=== PATIENT | female | born 1960 | race Caucasian/White ===

== ENCOUNTER 2019-09-16 17:26 | Inpatient (IN) | payer SELFPAY ==
[~2019-09-16] VITALS: Ht 172.7 cm; Wt 102.5 kg
[2019-09-16] MEDS ORDERED: MS CONTIN15 MG PO (18:38)
[2019-09-16] MEDS ORDERED: VALIUM5 MG PO (18:38)
[2019-09-16] MEDS ORDERED: LANTUS100 UNITS/ SUB-Q (18:39)
[2019-09-16] MEDS ORDERED: HUMALOG100 UNITS/ SUB-Q (18:39)
[2019-09-16] MEDS ORDERED: MORPHINE SULFAT30 M1 PO (21:46)
--- NOTE | 2019-09-16 22:47 | NUR ---
PT ARRIVES TO CCU ROOM 127 FOR PYELONEPHRITIS, ARRIVES WITH FAMILY. SOMEWHAT SLOW TO RESPOND AND DROWSY BUT SLIDES SELF FROM GURNEY TO BED. C/O FEELING COLD, WARM BLANKETS PROVIDED. PT C/O LOWER BACK PAIN. WILL CHECK ON PAIN MEDS. HR 60'S, SPO2 100% ON ROOM AIR AND RR 11. BP 121/50. LR BOLUS FROM ED INFUSING AND WILL START LR IVF. IV ROCEPHIN WAS GIVEN IN ED. PT ALERT AND ORIENTED, ANSWERING QUESTIONS APPROPRIATLEY BUT HAS SOME CONFUSION/LOSS OF MEMORY REGARDING EVENTS OF THE PREVIOUS DAY.
--- NOTE | 2019-09-16 22:53 | EKG ---
[facility] [address] [facility] [place], [place] [address] Signed Normal sinus rhythm Normal ECG No previous ECGs available Confirmed by JAMAR SANTOS MD ([id number]) on 09/16/2019 10:53:44 PM Electronically Signed By: JAMAR SANTOS MD 09/16/19 2253 PATIENT NAME: RENETTA TSANG Electrocardiogram DATE OF : 56 PHYSICIAN: JAMAR SANTOS MD REPORT #: [id number] REPORT IS CONFIDENTIAL AND NOT TO BE RELEASED WITHOUT AUTHORIZATION
--- NOTE | 2019-09-16 23:21 | NUR ---
RT IN WORKING WITH PT TEACHING IS.
--- NOTE | 2019-09-17 00:30 | NUR ---
PT MUCH MORE AWAKE NOW. EATING JELLO AND BROTH, ASKING FOR MORE FOOD. ALSO ASKING ABOUT HER CHRONIC PAIN MEDICATIONS.
--- NOTE | 2019-09-17 01:15 | NUR ---
PT UP TO BSC WITH 2 PERSON ASSIST, STEADY ON FEET AND LIZZY WELL. VOIDED 600ML VERY DARK FOUL SMELLING URINE. BACK TO BED WITH CALL LIGHT IN HAND, WANTING TO STAY UP AND WATCH TV. "I HAVE INSOMNIA". INFORMED OF NEW ORDER FOR ADVANCING DIET AND PLAN FOR DR SANTOS TO RESTART HER CHRONIC MEDICATIONS IN THE AM, PT AGREEABLE.
--- NOTE | 2019-09-17 04:33 | NUR ---
PT APPEARS TO BE SLEEPING AND RESTFUL/ RESP EVEN AND UNLABORED.
--- NOTE | 2019-09-17 06:33 | NUR ---
PT CONTINUES TO SLEEP, HR 60'S, SPO2 94% RR 8.
--- NOTE | 2019-09-17 08:00 | NUR ---
PT IS SLEEPING AT THIS TIME, AT TIMES SHE IS SNORING AND OR HER IS. PT APEARS TO BE COMFORTABLE AT THIS TIME.
--- NOTE | 2019-09-17 09:28 | NUR ---
IN FOR PTS INITIAL CASE MANAGEMENT ASSESSMENT. PTS PRIMARY NURSE IN ROOM. PT LIVES IN [place], WILL RETURN HOME WITH HER FAMILY.
--- NOTE | 2019-09-17 10:08 | NUR ---
PT UP TO THE BEDSIDE COMMODE VOIDED CLOUDY AND FOUL ODOR URINE, PT THEN BACK TO BED. PT SITTING UPRIGHT, AND DAUGHTER AT THE BEDSIDE. BKF ORDERED.
--- NOTE | 2019-09-17 10:53 | NUR ---
DR SANTOS INTO SEE PT AND NEW ORDERS RECEIVE. PT WILL BE TRANSFERED TO THE M/S UNIT TODAY AT SOMEPOINT.
--- NOTE | 2019-09-17 11:06 | NUR ---
REPORT CALLED TO MAHOGANY SANTOS, PT WILL BE TRANSFERED TO MS ROOM 123 AT SOMEPOINT THIS AM. ALL QUESTIONS ANSWERED AT THIS TIME.
--- NOTE | 2019-09-17 11:21 | NUR ---
PT REFUSED HER ADDITIONAL INSULIN DUE TO HER MUSCLES ARE SORE AND SHE CAN'T MOVE.
--- NOTE | 2019-09-17 11:23 | NUR ---
MED REC COMPLETE
--- NOTE | 2019-09-17 12:02 | NUR ---
PT JUST FINISHED BKF AT THIS TIME. FAMILY REMAINS IN THE ROOM AT THIS TIME. PT ALSO REFUSED HER ADDITIONAL INSULIN THAT WAS ORDERED "MY MUSCLES HURT AND I JUST CAN'T DO THIS". TRYED TO EXPLAINED HOW DM WORKS. IT APPEARS THE PT IS SET IN HER WAYS WITH HOW SHE CONTROLS HER DM.
--- NOTE | 2019-09-17 12:25 | NUR ---
PT TO ROOM VIA BED FAMILY ARE PRESENT. PT WANTS TO ORDER NOON MEAL
--- NOTE | 2019-09-17 12:44 | NUR ---
PT TRANSFERD VIA BED TO ROOM 123 AT THIS TIME. ALL PERSOANL BELONGINGS AND FAMILY WENT WITH PT AT THIS TIME.
--- NOTE | 2019-09-17 14:16 | NUR ---
PATIENT RESTING IN BED. AND DAUGHTER IN ROOM. VITAL SIGNS AND I&O DONE. CALL MAIRA ZHOU. NO OTHER NEEDS AT THIS TIME
--- NOTE | 2019-09-17 14:42 | NUR ---
PT EATS A LARGE LUNCH REMAINS IN THE BED, FAMILY PRESENT IN THE ROOM. UP TO TOILET 0 C/O RETURNS TO RESTING IN BED
--- NOTE | 2019-09-17 17:27 | NUR ---
PATIENT SITTING UP IN CHAIR. AND DAUGHTER IN ROOM. VITAL SIGNS AND I&O DONE. CALL LIGHT WITHIN REACH. NO OTHER NEEDS AT THIS TIME
--- NOTE | 2019-09-17 18:28 | NUR ---
PT SITTING UP IN BED EATING EVENING MEAL AND DAUGHTER REMAIN IN THE ROOM. PT AGREES SHE HAS EVERYTHING SHE NEEDS AT THIS TIME
--- NOTE | 2019-09-17 19:09 | NUR ---
RECEIVED REPORT FROM TOM FRANCIS. pt RESTING IN BED WITH AND DAUGHTER AT BEDSIDE. pt REPORTING 8/10 PAIN, REQUESTED PAIN MEDICATION. WILL SPEAK WITH THE MD AND RETURN. CALL LIGHT WITHIN REACH.
--- NOTE | 2019-09-17 19:25 | NUR ---
SPOKE WITH MD, NO NEW ORDERS. pt INFORMED OF MD'S DECISION. WILL BE BACK AT 2030 TO GIVE MEDICATION. pt AGREEABLE TO PLAN. CALL LIGHT WITHIN REACH.
--- NOTE | 2019-09-17 20:30 | NUR ---
ASSESSMENT DONE. MEDICATIONS GIVEN (SEE MAR). pt REQUESTED TO GET UP TO THE TOILET, SHOES ON. ASSISTED. 2PA TO TOILET. pt VOIDED. ABLE TO STAND. DISCUSSED LACK OF BM AT LENGTH. WILL CONSULT WITH MD ON BEST APPROACH. pt REQUIRED 2PA TO RETURN FROM TOILET TO BED. SETTLED IN BED. LINENS CHANGED. CLEANED EKG STICKERS OFF pt. NO FURTHER REQUESTS AT THIS TIME. CALL LIGHT WITHIN REACH. AND DAUGHTER AT BEDSIDE.
--- NOTE | 2019-09-17 21:45 | NUR ---
MD NOTIFED OF pt REQUESTED FOR MAG CITRATE. MD ORDER ENTERED, OKAY FOR pt's TO BRING IN PREFERRED FLAVOR. pt AND FAMILY INFORMED.
--- NOTE | 2019-09-17 23:22 | NUR ---
ROUNDED ON pt. SNORING WITH EYES CLOSED, RESPIRATIONS REGULAR AND UNLABORED. RATE = 18. CALL LIGHT WITHIN REACH.
--- NOTE | 2019-09-18 01:30 | NUR ---
ROUNDED ON pt. RESTING WITH EYES CLOSED, RESPIRATIONS REGULAR AND UNLABORED. AND DAUGHTER AT BEDSIDE. CALL LIGHT WITHIN REACH.
--- NOTE | 2019-09-18 03:55 | NUR ---
ROUNDED ON pt. RESTING WITH EYES CLOSED, RESPIRATIONS REGULAR AND UNLABORED. CALL LIGHT WITHIN REACH.
--- NOTE | 2019-09-18 06:05 | NUR ---
pt RESTED MOST OF SHIFT. CHRONIC PAIN WITH SCHEDULED MEDICATIONS. 2PA WITH SHOE AND BOOT. IVF INFUSING, IV ABX. 60 GM CARB DIET, NO PORK. CONCERNED ABOUT NOT HAVING A BOWEL MOVEMENT, MEDICATION ORDERED. AND DAUGHTER AT BEDSIDE. USES CALL LIGHT APPROPRIATELY.
--- NOTE | 2019-09-18 06:30 | NUR ---
pt SNORING, RESPIRATIONS REGULAR AND UNLABORED. WOKE FOR VITALS AND ASSESSMENT. pt WANTED TO GET UP TO VOID. pt REPORTED "I CAN'T FEEL MY FEET, I CAN'T MOVE MY LEGS" pt MOVED LEGS TO SIDE OF BED. REQUIRED 2PA TO STAND. PIVOT TO BSC. pt REQUESTED TIME ON BSC. AT BEDSIDE.
--- NOTE | 2019-09-18 07:10 | NUR ---
pt SITTING ON BSC. DRINKING MAG CITRATE (SEE MAR). pt REPORTED FEELING MORE AWAKE. REPORT GIVEN TO TOM GAMEZ. pt REQUESTED MORE TIME ON BSC. WILL CALL WHEN READY TO GET BACK TO BED.
--- NOTE | 2019-09-18 07:55 | NUR ---
Attempted to see pt, she is sleeping. Will return later.
--- NOTE | 2019-09-18 08:30 | NUR ---
PT CALLED FOR ASSISTANCE TO GET PT OFF COMMODE. PT VOIDED. THIS RN AND PT ASSISTED PT TO BED. UNSTEADY ON HER FEET. PT HAS FLAT AFFECT BUT WILL MOAN AND GRIMACE OCCASIONALLY. REPORTS PAIN "ALL OVER" 07/27. BECOMES VERY SHORT WITH AND RAISES HER VOICE TO HIM WHEN HE TRIES TO ASK HER QUESTIONS OR ASSIST HER. AM MEDS ADMINISTERED. BREAKFAST TRAY SET UP. PT ALERT AND ORIENTED TO ALL ALTHOUGH SLOW TO RESPOND. PT DAUGHTER ASLEEP ON COUCH. CALL LIGHT WITHIN REACH.
--- NOTE | 2019-09-18 09:57 | NUR ---
PATIENT SITTING UP IN CHAIR. AND DAUGHTER IN ROOM. VITAL SIGNS AND I&O DONE. CALL LIGHT WITHIN REACH. NO OTHER NEEDS AT THIS TIME
--- NOTE | 2019-09-18 11:40 | NUR ---
PATIENT RESTING IN BED. AND DAUGHTER IN ROOM. PATIENT GOES TO USE THE BASE COMMODE. TWO PERSON ASSISTING. PATIENT TRANSFERRED TO SHOWER CHAIR. TWO PERSON ASSISTING. IV'S WRAPPED. PATIENT TAKES A SHOWER. ONE PERSON ASSISTING. PATIENT USING A CLEAN GOWN AND ADULT PULL UP. PATIENT BACKS TO BED. WARM BLANKET PROVIDED. ICE WATER GIVEN. CALL LIGHT WITHIN REACH. NO OTHER NEEDS AT THIS TIME
--- NOTE | 2019-09-18 11:44 | NUR ---
PT SHOWERED WITH ASSISTANCE FROM LIZZY BROWN CNA. PT BACK TO BED NOW. DR. SANTOS ROUNDHELADIO ON PT. AND DAUGHTER AT BEDSIDE.
--- NOTE | 2019-09-18 13:48 | NUR ---
PATIENT RESTING IN BED. AND DAUGHTER IN ROOM. VITAL SIGNS AND I&O DONE. CALL LIGHT WITHIN REACH. NO OTHER NEEDS A THIS TIME
--- NOTE | 2019-09-18 14:20 | NUR ---
PT SITTING UP IN BED. MULTIPLE VISITORS AT BEDSIDE. PT DENIES NEEDS OR CONCERNS AT THIS TIME. CALL LIGHT WITHIN REACH.
--- NOTE | 2019-09-18 15:40 | NUR ---
PT LYING IN BED APPEARS TO BE SLEEPING. EYES CLOSED. RESP EVEN AND UNLABORED. AND DAUGHTER AT BEDSIDE. CALL LIGHT WITHIN REACH.
--- NOTE | 2019-09-18 17:34 | NUR ---
Attempted to see pt, she is on commode. Spouse is out of room. Will see in the am.
--- NOTE | 2019-09-18 17:59 | NUR ---
PATIENT SITTING UP IN BED. VITAL SIGNS AND I&O DONE. CALL LIGHT WITHIN REACH. NO OTHER NEEDS AT THIS TIME
--- NOTE | 2019-09-18 18:10 | NUR ---
PT 2PA TO COMMODE. HAD VERY LARGE LIQUID BM. ASSISTED BACK TO BED. NOW SITTING UP EATING DINNER. AND DAUGHTER AT BEDSIDE. PT AWAKE BUT DROWSY, EYES CLOSED MOST OF THE TIME. ANSWERS ORIENTATION QUESTIONS APPROPRIATELY. RATES PAIN 8/10. CALL LIGHT WITHIN REACH.
--- NOTE | 2019-09-18 20:01 | NUR ---
REPORT RECEIVED FROM DAY SHIFT RN. PT ALERT AND ORIENTED. SITTING UP IN BED EATING DINNER. AND DAUGHTER IN ROOM. PT DENIES NEEDS AT THIS TIME. CALL LIGHT IN REACH.
--- NOTE | 2019-09-18 20:05 | NUR ---
CHARGE REPORT RECEIVED NEAR 192, PT WITH NO NEEDSA T THIS TIME.
--- NOTE | 2019-09-18 21:20 | NUR ---
EVENING ASSESSMENT COMPLETE. EVENING MEDS GIVEN WITHOUT ISSUE. PT DROWSY, REQUIRED CONTINUAL CUEING FOR MED ADMINISTRATION. BS 158, INSULIN GIVEN PER SLIDING SCALE. IV ABX INFUSING. VS & I&O'S COMPLETE. PT AND DAUGHTER IN ROOM. BLANKETS PROVIDED. PT AND DENY FURTHER NEEDS AT THIS TIME. CALL LIGHT IN REACH.
--- NOTE | 2019-09-19 00:06 | NUR ---
PT RESTING IN BED WITH EYES CLOSED, NAD. AND DAUGHTER NOT IN ROOM AT THIS TIME. CALL LIGHT IN REACH.
--- NOTE | 2019-09-19 02:30 | NUR ---
PT RESTING IN BED WITH EYES CLOSED, NAD. AND DAUGHTER ASLEEP IN ROOM. CALL LIGHT IN REACH.
--- NOTE | 2019-09-19 05:13 | NUR ---
PT CONTINUES TO REST, NAD. DENIES NEEDS. CALL LIGHT IN REACH.
--- NOTE | 2019-09-19 05:51 | NUR ---
PT SLEPT THROUGH THE NIGHT. CHRONIC PAIN WITH SCHEDULED MEDICATIONS. 60 GR CARB DIET, NO PORK. 2PA. GENERALIZED EDEMA. IV ABX. AND DAUGHTER IN THE ROOM. USES CALL LIGHT APPROPRIATELY.
--- NOTE | 2019-09-19 06:15 | NUR ---
PT SLEPT THROUGH THE NIGHT. CHRONIC PAIN WITH SCHEDULED MEDICATIONS. 60 GR CARB DIET, NO PORK. 2PA. GENERALIZED EDEMA. IV ABX. AND DAUGHTER IN THE ROOM. USES CALL LIGHT APPROPRIATELY.
--- NOTE | 2019-09-19 07:30 | NUR ---
Report received, orders acknowledged. Patient laying in bed, rouses to voice. Family in room at bedside. Denies needs at this time, call light within reach.
--- NOTE | 2019-09-19 08:20 | NUR ---
In and spoke with pt's spouse. Pt does not make eye contact and is dozing off and on during conversation. Discussed pt will be discharged and want to make sure they have everything they need to go home to her sisters house here in [place]. Spouse is irriated stating pt cannot go home as she cannot care for self. He states she is unable to void. Discussed with spouse she looks sedated, he does acknowledge she takes high doses of opioids due to her medical diagnoses. We also discussed he told Dr. Chavez pt is at baseline. Let him know I will tell Dr. Oakley his concerns and her inability to void. Dr. Oakley updated.
--- NOTE | 2019-09-19 08:45 | NUR ---
Patient sitting up in bed watching tv. Family in room at bedside. AM medications given, assessment complete. Patient transferred from commode to bed with 3PA, voiding QS. Denies further needs at this time, call light within reach.
[2019-09-19] MEDS ORDERED: DOXYCYCLINE HY100 MG PO (09:22)
--- NOTE | 2019-09-19 09:34 | NUR ---
Patient sitting up in bed with family at bedside. Medications given. Patient denies questions or concerns. No further needs at this time, call light within reach.
--- NOTE | 2019-09-19 10:20 | NUR ---
Notified by Dr Oakley he saw pt and she was able to void. He will dc to home.
--- NOTE | 2019-09-19 11:07 | NUR ---
Discharge instructions given, all questions and concerns are answered. Patient verbalized understanding of follow-up appointment. Vital signs taken, IV D/C'd. All personal belongings collected. Patient leaves unit via wheelchair with family and nursing staff.
--- NOTE | 2019-09-19 11:12 | NUR ---
MICHELLE SANTOS AND SAUNDRA TORRES, THIS RN ALSO IN ROOM TO ASSIST PT TO WHEELCHAIR FOR DISCHARGE VERBALIZED HE FELT LIKE SHE IS LESS COHERENT THAN THIS AM, PT WAS ABLE TO STAND AND THEN TURN ON OWN POWER TO SIT IN WHEELCHAIR. WITH STAFF STABDBY ASSIST AND VERBAL PROMPTS. SPOUSE VERBALIZED CONCERN TO MANAGE PT INTO VAN BY HIMSELF. THIS RN VERBALIZED THAT THE MD WOULD BE AVAILABLE IF HE HAD CONCERNS HE WOULD LIKE TO DISCUSS YUSEF, SPOUSE SAID "NO, LET'S GO" IN REFERENCE TO HIS DAUGHTER AND AND STAFF TO ASSIST. SPOUSE SAID "IT'S ON YOU" TO STAFF AT NURSES STATION IN REGARDS TO PATIENT SEDATION NO BEING SAFE TO DISCHARGE.
--- NOTE | 2019-09-19 11:20 | NUR ---
MD CALLED AND HOPPER ATTENDANT ASKED TO STOP DISCHARGE FOR MD TO TALK TO PATIENT AND FAMILY IN REGARDS TO DISCHARGE CONCERNS.
== END 2019-09-19 11:07 | disposition home or self-care (01) | DRG 689 ==
LOC: ED 17:26 → CCU 22:11 → MS 09-17 12:40
PROVIDERS: ADMIT Internal Medicine
DX: N10 Acute pyelonephritis (principal); G93.41 Metabolic encephalopathy; F11.20 Opioid dependence, uncomplicated; B96.20 Unspecified Escherichia coli [E. coli] as the cause of diseases classified elsewhere; E83.110 Hereditary hemochromatosis; E11.9 Type 2 diabetes mellitus without complications; G89.4 Chronic pain syndrome; G60.0 Hereditary motor and sensory neuropathy; Z88.5 Allergy status to narcotic agent; Z88.8 Allergy status to other drugs, medicaments and biological substances; Z79.899 Other long term (current) drug therapy; Z79.4 Long term (current) use of insulin
CPT/HCPCS: 71045; 80053; 81001; 84484; 85025; 87077; 87088; 87186; 93005; 93010; 94760; 96374; 99285-25; G0480; J0696; J1650; J1815; J7030; J7121